=== PATIENT | female | born 1980 | race Caucasian/White ===

== ENCOUNTER 2016-12-29 08:23 | Emergency (ER) | payer OTHER ==
[2016-12-29 08:36] VITALS: BP 117/79; PULSE 80; RESP 18; TEMP 98.1
[2016-12-29] MEDS ORDERED: GELATIN SPONGE,ABSORB (SMALL) 1 EACH SPONGE TOPICAL STA (08:47)
--- NOTE | 2016-12-29 08:51 | ED ---
Wound/Laceration HPI - General Chief Complaint: Wound/Laceration Stated Complaint: finger lac Time Seen by Provider: 12/29/16 08:43 Source: patient, RN notes reviewed Mode of arrival: ambulatory Limitations: no limitations - History of Present Illness Initial Comments: This a 36-year-old female presents emergency Department with chief complaint of left hand index finger laceration. She states this happened last night. Patient states that she had a new knife and states she was cutting some salad and cut the tip of her index finger off. Patient states her tetanus up-to-date in the last 5 years. Denies any paresthesias she states she is concerned as it was still slightly bleeding today. Patient denies any paresthesias patient offers no other complaints. - Related Data Allergies Allergy/AdvReac Type Severity Reaction Status Date / Time erythromycin base AdvReac Nausea & Verified 12/29/16 08:37 Vomiting sulfamethoxazole AdvReac Nausea & Verified 12/29/16 08:37 [From Bactrim] Vomiting trimethoprim [From Bactrim] AdvReac Nausea & Verified 12/29/16 08:37 Vomiting Review of Systems ROS Statement: Those systems with pertinent positive or pertinent negative responses have been documented in the HPI. ROS Other: All systems not noted in ROS Statement are negative. Past Medical History Past Medical History: No Reported History History of Any Multi-Drug Resistant Organisms: None Reported Past Surgical History: Section Additional Past Surgical History / Comment(s): lap Past Psychological History: Anxiety Smoking Status: Never smoker Past Alcohol Use History: Occasional Past Drug Use History: None Reported General Exam Limitations: no limitations General appearance: alert, in no apparent distress Neck exam: Present: normal inspection. Absent: tenderness, meningismus, lymphadenopathy Respiratory exam: Present: normal lung sounds bilaterally. Absent: respiratory distress, wheezes, rales, rhonchi, stridor Extremities exam: Present: other (Left hand second digit there is a skin avulsion noted to the distal tip little venous ooze noted. Patient's full range of motion) Skin exam: Present: warm, dry, intact, normal color. Absent: rash Course Vital Signs 12/29/16 08:33 Temperature 98.1 F Pulse Rate 80 Respiratory 18 Rate Blood Pressure 117/79 O2 Sat by Pulse 100 Oximetry Procedures - Procedures Initial comment: Gelfoam was applied of the skin avulsion. The wound was cleaned prior Medical Decision Making - Medical Decision Making 36-year-old female presented for skin avulsion. He states this was achieved using Gelfoam. Patient tolerated well tetanus up-to-date return parameters were discussed. Disposition Clinical Impression: Avulsion of skin of finger Disposition: HOME SELF-CARE Condition: Stable Instructions: Skin Avulsion (ED) Additional Instructions: Please return to the Emergency Department if symptoms worsen or any other concerns. Referrals: Leisa Greene MD [Primary Care Provider] - 1-2 days Time of Disposition: 08:51
== END 2016-12-29 09:12 | disposition home or self-care (01) ==
LOC: EC 08:23
DX: S61.211A Laceration without foreign body of left index finger without damage to nail, initial encounter (principal); Z88.1 Allergy status to other antibiotic agents; Z88.2 Allergy status to sulfonamides; W26.0XXA Contact with knife, initial encounter
CPT/HCPCS: 99282

== ENCOUNTER 2017-03-13 14:10 | Emergency (ER) | payer OTHER ==
[2017-03-13 14:27] VITALS: BP 127/73; PULSE 81; RESP 20; TEMP 98
--- NOTE | 2017-03-13 14:48 | ED ---
General Adult HPI - General Chief complaint: Wound/Laceration Stated complaint: Lac/Thumb/ 7 weeks Time Seen by Provider: 03/13/17 14:11 Source: patient, family Mode of arrival: ambulatory Limitations: no limitations - History of Present Illness Initial comments: This is a 36-year-old female who presents to the emergency department with chief complaint of left hand laceration. Patient states that approximately 30 minutes ago she was fixing her oven door when the hinges retracted back and hit her on the left hand. She states that there was a moderate amount of bleeding. She currently rates her pain as 4/10. At its worse it is 7/10. Patient states she is up-to-date with all of her vaccinations including tetanus. Denies fever, chills, chest pain, shortness of breath, abdominal pain, nausea or vomiting, constipation or diarrhea, dysuria or hematuria, numbness or tingling, headache or vision changes. - Related Data Home Medications Medication Instructions Recorded Confirmed Pnv 11/Iron Fum/Folic Acid/Om3 1 cap PO DAILY 03/13/17 03/13/17 [Virt-Bobby Dha Softgel] Allergies Allergy/AdvReac Type Severity Reaction Status Date / Time erythromycin base AdvReac Nausea & Verified 03/13/17 14:29 Vomiting sulfamethoxazole AdvReac Nausea & Verified 03/13/17 14:29 [From Bactrim] Vomiting trimethoprim [From Bactrim] AdvReac Nausea & Verified 03/13/17 14:29 Vomiting Review of Systems ROS Statement: Those systems with pertinent positive or pertinent negative responses have been documented in the HPI. ROS Other: All systems not noted in ROS Statement are negative. Past Medical History Past Medical History: No Reported History History of Any Multi-Drug Resistant Organisms: None Reported Past Surgical History: Section Additional Past Surgical History / Comment(s): lap Past Psychological History: Anxiety Smoking Status: Never smoker Past Alcohol Use History: Occasional Past Drug Use History: None Reported General Exam - General Exam Comments Initial Comments: General: Awake and alert, well-developed; in no apparent distress. HEENT: Head atraumatic, normocephalic. Pupils are equal, round and reactive to light. Extraocular movements intact. Neck: Supple. Normal ROM. Cardiovascular: Regular rate and rhythm. No murmurs, rubs or gallops. Chest symmetrical. Respiratory: Lungs clear to auscultation bilaterally. No wheezes, rales or rhonchi. Normal respiratory effort with no use of accessory muscles. Skin: [place], warm and dry without rashes or lesions. Approximately 2 cm crescent -shaped laceration at lateral aspect of the thenar eminence of left hand. Radial pulses 2+ equal and palpable bilaterally. Sensation is intact. Neurological: Alert and oriented x3. CN II-XII grossly intact. Speech is fluent and answers are appropriate. No focal neuro deficits. Psychiatric: Normal mood and affect. No overt signs of depression or anxiety noted. Limitations: no limitations Course Vital Signs 03/13/17 14:12 Temperature 98.0 F Pulse Rate 81 Respiratory 20 Rate Blood Pressure 127/73 O2 Sat by Pulse 98 Oximetry Procedures - Laceration Laceration #1 Consent Obtained: verbal consent Indication: laceration Site: hand Size (cm): 2 Description: linear (crescent-shaped) Depth: simple, single layer Anesthetic Used: lidocaine 1% Anesthesia Technique: local infiltration Amount (mls): 3 Pre-repair: wound explored, irrigated extensively, deep structures intact Type of Sutures: nylon Size of Sutures: 4-0 Number of Sutures: 3 Technique: simple, interrupted Patient Tolerated Procedure: well, no complications Medical Decision Making - Medical Decision Making This is a 36-year-old female who presents to the emergency department complaining of left hand laceration. 3 sutures were placed and patient tolerated the procedure well. Patient will be discharged home with recommendation to have sutures removed in 10-14 days. Patient is in no acute distress at this time, agrees with the plan and voices understanding. All questions were answered. Disposition Clinical Impression: Laceration of left hand Disposition: HOME SELF-CARE Condition: Good Instructions: Laceration (ED) Additional Instructions: May take Tylenol as needed for pain. Please follow up with primary care provider within 1-2 days. Return to emergency department if symptoms should worsen or any concerns arise. Referrals: Leisa Greene MD [Primary Care Provider] - 1-2 days Time of Disposition: 14:48
== END 2017-03-13 14:45 | disposition home or self-care (01) ==
LOC: EC 14:10
DX: O9A.211 Injury, poisoning and certain other consequences of external causes complicating pregnancy, first trimester (principal); S61.412A Laceration without foreign body of left hand, initial encounter; Z3A.01 Less than 8 weeks gestation of pregnancy; Z88.1 Allergy status to other antibiotic agents; Z88.2 Allergy status to sulfonamides; Z79.899 Other long term (current) drug therapy; W45.8XXA Other foreign body or object entering through skin, initial encounter; Y92.009 Unspecified place in unspecified non-institutional (private) residence as the place of occurrence of the external cause
CPT/HCPCS: 12001; 99282

== ENCOUNTER 2017-06-01 10:07 | Emergency (ER) | payer OTHER ==
[2017-06-01 10:30] VITALS: BP 128/76; PULSE 73; RESP 16; TEMP 97.9
--- NOTE | 2017-06-01 11:29 | XR ---
EXAMINATION TYPE: XR facial bones complete DATE OF EXAM: 06/01/2017 COMPARISON: NONE HISTORY: Pain TECHNIQUE: 3 views FINDINGS: Orbital margins are intact. There is normal aeration of the maxillary sinuses. Nasal bone a ppears intact. Maxillary spine appears intact. IMPRESSION: Normal exam. No fracture.
--- NOTE | 2017-06-01 11:49 | ED ---
ENT HPI - General Chief complaint: ENT Stated complaint: nose injury Time Seen by Provider: 06/01/17 10:35 Source: patient, RN notes reviewed, old records reviewed Mode of arrival: ambulatory Limitations: no limitations - History of Present Illness Initial comments: This is a 36 year old female in 3 trimester of with CC of nose injury 2 days ago. She reports that her son smashed his head on her nose and she heard a crack. She reports that her nose is swollen and deformed to the side. Patient reports that she is here to evaluate if it is broken. She reports she has no pain with EOM, denies any difficulty breathing throught hte nose. It did bleed afterward, but stopped after. Patient reports tylenol is not helping with the pain. - Related Data Home Medications Medication Instructions Recorded Confirmed Pnv 11/Iron Fum/Folic Acid/Om3 1 cap PO DAILY 03/13/17 06/01/17 [Virt-Bobby Dha Softgel] Acetaminophen [Tylenol 8 Hour] 650 mg PO Q8H PRN 06/01/17 06/01/17 Previous Rx's Medication Instructions Recorded Amoxicillin 500 mg PO Q8H #21 capsule 06/01/17 Sodium Chloride [Saline Mist] 1 spray EA NOSTRIL DAILY #1 bottle 06/01/17 Allergies Allergy/AdvReac Type Severity Reaction Status Date / Time erythromycin base AdvReac Nausea & Verified 06/01/17 11:00 Vomiting sulfamethoxazole AdvReac Nausea & Verified 06/01/17 11:00 [From Bactrim] Vomiting trimethoprim [From Bactrim] AdvReac Nausea & Verified 06/01/17 11:00 Vomiting Review of Systems ROS Statement: Those systems with pertinent positive or pertinent negative responses have been documented in the HPI. ROS Other: All systems not noted in ROS Statement are negative. Past Medical History Past Medical History: No Reported History History of Any Multi-Drug Resistant Organisms: None Reported Past Surgical History: Section Additional Past Surgical History / Comment(s): lap Past Psychological History: Anxiety Smoking Status: Never smoker Past Alcohol Use History: None Reported Past Drug Use History: None Reported General Exam - General Exam Comments Initial Comments: This is a 36 year old female, no distress. Limitations: no limitations General appearance: alert, in no apparent distress Head exam: Present: atraumatic, normocephalic, normal inspection Eye exam: Present: normal appearance, PERRL, EOMI. Absent: scleral icterus, conjunctival injection, periorbital swelling ENT exam: Present: normal oropharynx, mucous membranes moist, other (tenderness over nasal bridge. PAtient has subtle deformity of nasal bridge with left sided lateral displacement. ). Absent: normal exam Neck exam: Present: normal inspection. Absent: tenderness, meningismus, lymphadenopathy Respiratory exam: Present: normal lung sounds bilaterally. Absent: respiratory distress, wheezes, rales, rhonchi, stridor Cardiovascular Exam: Present: regular rate, normal rhythm, normal heart sounds. Absent: systolic murmur, diastolic murmur, rubs, gallop, clicks GI/Abdominal exam: Present: soft, normal bowel sounds, other (protruberant abdomen with ). Absent: distended, tenderness, guarding, rebound, rigid Extremities exam: Present: normal inspection, full ROM, normal capillary refill. Absent: tenderness, pedal edema, joint swelling, calf tenderness Back exam: Present: normal inspection Neurological exam: Present: alert, oriented X3, CN II-XII intact Psychiatric exam: Present: normal affect, normal mood Skin exam: Present: warm, dry, intact, normal color. Absent: rash Course Vital Signs 06/01/17 10:25 Temperature 97.9 F Pulse Rate 73 Respiratory 16 Rate Blood Pressure 128/76 O2 Sat by Pulse 100 Oximetry Medical Decision Making - Medical Decision Making This is a 36 year old female with 2 days of nasal pain after being hit in the nose. PAtient is concerned of lateral deformity. Patient underwent xray vs. CT because patient is . Patient nasal bone xray shows no acute fracture, however I believe there is significan lateral displacement. Disucssed that patient can follow up with ENT and ice the area. Patient needs to use nasal saline spray. Discussed tylenol for pain. - Radiology Data Nasal bone xray shows no abnormalities. Disposition Clinical Impression: Nasal contusion, Nasal fracture Disposition: HOME SELF-CARE Condition: Good Instructions: Nasal Fracture (ED) Additional Instructions: Ice to rest, apply ice over the area is much as possible. Use nasal saline spray. Patient should follow-up with primary care provider. Recommended follow -up with [facility] specialist link goes down. Prescriptions: Amoxicillin 500 mg PO Q8H #21 capsule Sodium Chloride [Saline Mist] 1 spray EA NOSTRIL DAILY #1 bottle Referrals: Leisa Greene MD [Primary Care Provider] - 1-2 days Sriram Lagos MD [STAFF PHYSICIAN] - 1-2 days Time of Disposition: 11:46
== END 2017-06-01 12:07 | disposition home or self-care (01) ==
LOC: EC 10:07
DX: O9A.213 Injury, poisoning and certain other consequences of external causes complicating pregnancy, third trimester (principal); S02.2XXA Fracture of nasal bones, initial encounter for closed fracture; Z79.899 Other long term (current) drug therapy; Z88.1 Allergy status to other antibiotic agents; Z98.890 Other specified postprocedural states; Z3A.00 Weeks of gestation of pregnancy not specified; W50.0XXA Accidental hit or strike by another person, initial encounter
CPT/HCPCS: 70150; 99283

== ENCOUNTER 2018-01-31 22:05 | Emergency (ER) | payer OTHER ==
[2018-01-31] MEDS ORDERED: ACETAMINOPHEN TAB 500 MG TAB PO STA (22:42)
[2018-01-31] MEDS ORDERED: SODIUM CHLORIDE 0.9% 2,000 ML IV ONE (22:42)
[2018-01-31] MEDS ORDERED: AMOXIC-POT CLAV 875-125MG 1 EACH TAB PO STA (22:43)
--- NOTE | 2018-01-31 22:47 | ED ---
General Adult HPI - General Chief complaint: Skin/Abscess/Foreign Body Stated complaint: mastitis Time Seen by Provider: 01/31/18 22:21 Source: patient Mode of arrival: ambulatory Limitations: no limitations - History of Present Illness Initial comments: Patient is a 37-year-old female presenting for complaint of right breast pain. She states that she has been breast-feeding and for last 10-11 days, she has been having some intermittent discomfort under the right nipple. She states that over the last day or so, she now has red streaks in that area and is fairly tender. She also admits to fevers and chills and she has been trying warm compresses, and other home remedies but the symptoms have not significantly improved. She believes that this is mastitis as she has rest fed all her children she is well educated in this area. - Related Data Home Medications Medication Instructions Recorded Confirmed Pnv 11/Iron Fum/Folic Acid/Om3 1 cap PO DAILY 03/13/17 06/01/17 [Virt-Bobby Dha Softgel] Acetaminophen [Tylenol 8 Hour] 650 mg PO Q8H PRN 06/01/17 06/01/17 Previous Rx's Medication Instructions Recorded Amoxicillin 500 mg PO Q8H #21 capsule 06/01/17 Sodium Chloride [Saline Mist] 1 spray EA NOSTRIL DAILY #1 bottle 06/01/17 Amoxic-Pot Clav 875-125Mg 1 tab PO Q12HR 10 Days #19 tablet 02/01/18 [Augmentin 875-125] Allergies Allergy/AdvReac Type Severity Reaction Status Date / Time erythromycin base AdvReac Nausea & Verified 01/31/18 22:10 Vomiting sulfamethoxazole AdvReac Nausea & Verified 01/31/18 22:10 [From Bactrim] Vomiting trimethoprim [From Bactrim] AdvReac Nausea & Verified 01/31/18 22:10 Vomiting Review of Systems ROS Statement: Those systems with pertinent positive or pertinent negative responses have been documented in the HPI. Constitutional: Positive for chills, fatigue and fever. HENT: Negative for congestion. Respiratory: Negative for chest tightness, shortness of breath and wheezing. Negative for cough Cardiovascular: Negative for chest pain and palpitations. Gastrointestinal: Negative for abdominal pain. Negative for abdominal distention , diarrhea, nausea and vomiting. Genitourinary: Negative for dysuria. Musculoskeletal: Negative for back pain, neck pain and neck stiffness. Skin: Positive for color change. Neurological: Negative for dizziness, speech difficulty, weakness and light- headedness. Psychiatric/Behavioral: Negative for agitation and confusion. Negative for anxiety ROS Other: All systems not noted in ROS Statement are negative. Past Medical History Past Medical History: No Reported History History of Any Multi-Drug Resistant Organisms: None Reported Past Surgical History: Section Additional Past Surgical History / Comment(s): lap Past Psychological History: Anxiety Smoking Status: Never smoker Past Alcohol Use History: None Reported Past Drug Use History: None Reported General Exam - General Exam Comments Initial Comments: Constitutional: Pt is oriented to person, place, and time. Pt appears well- developed and well-nourished. No distress. HENT: Head: Normocephalic and atraumatic. Eyes: EOM are normal. Neck: Normal range of motion. Neck supple. Cardiovascular: Tachycardia present, regular rhythm, S1 normal, S2 normal and normal heart sounds. Exam reveals no gallop and no friction rub. No murmur heard. Pulmonary/Chest: Effort normal and breath sounds normal. No tachypnea and no bradypnea. No respiratory distress. No wheezes or rales noted. Abdominal: Soft. Bowel sounds are normal. Pt exhibits no shifting dullness, no distension, no pulsatile liver, no fluid wave, no abdominal bruit and no ascites. There is no tenderness. There is no rigidity, no rebound, no guarding, no tenderness at McBurney's point and negative Moreno's sign. Musculoskeletal: Normal range of motion. Neurological: Pt is alert and oriented to person, place, and time. No cranial nerve deficit. Skin: Skin is warm and dry. No rash noted. Pt is not diaphoretic. No pallor. There is erythema on the inferior medial aspect of the right breast. There is no palpable abscess. Psychiatric: Pt has a normal mood and affect. Pt behavior is normal. Thought content normal. Limitations: no limitations Course Vital Signs 01/31/18 01/31/18 01/31/18 22:07 23:17 23:58 Temperature 99.8 F H 98.7 F Pulse Rate 114 H 102 H Respiratory 20 16 16 Rate Blood Pressure 120/70 102/58 O2 Sat by Pulse 97 95 Oximetry Medical Decision Making - Medical Decision Making Patient was given 2 L normal saline as well as Tylenol and vital signs improved but patient was still mildly tachycardic at 102. Nonetheless, the patient stated that she would like to be discharged as she felt much better.. Extensive discussion was had with the patient and this appeared to be non- complicated mastitis and therefore the patient was given Augmentin here in the emergency department and it was also discussed and it was felt that laboratory studies would be unrevealing and not changed ultimate disposition in that the patient would be a good candidate for outpatient management with Augmentin. She was advised to continue to pump and breast feed as well as use warm compresses. She is also advised to follow up with PCP in next 1-2 days and/or return if the symptoms continue or worsen. There is also no evidence of abscess on palpation Disposition Clinical Impression: Mastitis Disposition: HOME SELF-CARE Condition: Good Instructions: Mastitis (ED) Prescriptions: Amoxic-Pot Clav 875-125Mg [Augmentin 875-125] 1 tab PO Q12HR 10 Days #19 tablet Is patient prescribed a controlled substance at d/c from ED?: No Referrals: Leisa Greene MD [Primary Care Provider] - 1-2 days
[2018-01-31 23:18] VITALS: RESP 16
[2018-02-01] VITALS: BP 102/58; PULSE 102; TEMP 98.7
== END 2018-02-01 00:20 | disposition home or self-care (01) ==
LOC: EC 22:05
DX: N61.0 Mastitis without abscess (principal); R00.0 Tachycardia, unspecified; Z88.1 Allergy status to other antibiotic agents; Z88.2 Allergy status to sulfonamides
CPT/HCPCS: 96360; 99283

== ENCOUNTER 2018-04-22 06:19 | Emergency (ER) | payer OTHER ==
[2018-04-22 06:28] VITALS: BP 104/74
[2018-04-22 06:55] VITALS: PULSE 72; RESP 18; TEMP 97.7
--- NOTE | 2018-04-22 08:02 | ED ---
ENT HPI - General Chief complaint: ENT Stated complaint: sore throat Time Seen by Provider: 04/22/18 07:27 Source: patient, RN notes reviewed, old records reviewed Mode of arrival: ambulatory Limitations: no limitations - History of Present Illness Initial comments: This is a 37-year-old female the ER for evaluation she presents today for evaluation of sore throat and swollen lymph nodes. No travel history no sick contacts no fevers, patient did develop rash yesterday which is now resolved. Patient has no difficulty swallowing. No pain when turning head or neck. No headache. Patient is currently breast.. Patient has no known sick contacts no travel history no fever cough or congestion -: days(s) (30) Location: throat Severity: moderate Severity scale (1-10): 5 Quality: aching Consistency: constant Improves with: none Worsens with: swallowing Associated Symptoms: sore throat - Related Data Home Medications Medication Instructions Recorded Confirmed No Known Home Medications 04/22/18 04/22/18 Allergies Allergy/AdvReac Type Severity Reaction Status Date / Time erythromycin base AdvReac Nausea & Verified 04/22/18 07:37 Vomiting sulfamethoxazole AdvReac Nausea & Verified 04/22/18 07:37 [From Bactrim] Vomiting trimethoprim [From Bactrim] AdvReac Nausea & Verified 04/22/18 07:37 Vomiting Review of Systems ROS Statement: Those systems with pertinent positive or pertinent negative responses have been documented in the HPI. ROS Other: All systems not noted in ROS Statement are negative. Past Medical History Past Medical History: No Reported History History of Any Multi-Drug Resistant Organisms: None Reported Past Surgical History: Section Additional Past Surgical History / Comment(s): lap Past Psychological History: Anxiety Smoking Status: Never smoker Past Alcohol Use History: None Reported Past Drug Use History: None Reported General Exam Limitations: no limitations General appearance: alert, in no apparent distress Head exam: Present: atraumatic, normocephalic, normal inspection Eye exam: Present: normal appearance, PERRL, EOMI. Absent: scleral icterus, conjunctival injection, periorbital swelling ENT exam: Present: normal exam, other (Pharyngeal erythema) Neck exam: Present: normal inspection, lymphadenopathy (Lab/lymphadenopathy). Absent: tenderness, meningismus Respiratory exam: Present: normal lung sounds bilaterally. Absent: respiratory distress, wheezes, rales, rhonchi, stridor Cardiovascular Exam: Present: regular rate, normal rhythm, normal heart sounds. Absent: systolic murmur, diastolic murmur, rubs, gallop, clicks GI/Abdominal exam: Present: soft, normal bowel sounds. Absent: distended, tenderness, guarding, rebound, rigid Extremities exam: Present: normal inspection, full ROM, normal capillary refill. Absent: tenderness, pedal edema, joint swelling, calf tenderness Back exam: Present: normal inspection Neurological exam: Present: alert, oriented X3, CN II-XII intact Psychiatric exam: Present: normal affect, normal mood Skin exam: Present: warm, dry, intact, normal color. Absent: rash Course Vital Signs 04/22/18 04/22/18 06:24 06:54 Temperature 98.1 F 97.7 F Pulse Rate 82 72 Respiratory 16 18 Rate Blood Pressure 104/74 O2 Sat by Pulse 100 99 Oximetry Medical Decision Making - Medical Decision Making 37 female the ER for evaluation of sore throat lymphadenopathy, pharyngitis strep negative. We'll follow up on culture. Patient can be discharged home - Lab Data Lab Results 04/22/18 Range/Units 08:10 Group A Strep Rapid Negative (Negative) Disposition Clinical Impression: Acute viral pharyngitis, Lymphadenopathy Disposition: HOME SELF-CARE Condition: Good Instructions: Pharyngitis (ED) Is patient prescribed a controlled substance at d/c from ED?: No Referrals: Leisa Greene MD [Primary Care Provider] - 1-2 days
== END 2018-04-22 08:53 | disposition home or self-care (01) ==
LOC: EC 06:19
DX: J02.8 Acute pharyngitis due to other specified organisms (principal); Z88.1 Allergy status to other antibiotic agents; Z88.2 Allergy status to sulfonamides
CPT/HCPCS: 87081; 87430; 99283